=== PATIENT | male | born 1975 | race Caucasian/White ===

== ENCOUNTER 2019-09-19 15:19 | Emergency (ER) | payer BC, SELFPAY ==
[2019-09-19 15:33] VITALS: BP 133/95; PULSE 75; O2SAT 100
[2019-09-19] MEDS ORDERED: Norflex 60 MG/2 ML IM ONE (15:46)
[2019-09-19] MEDS ORDERED: TORAdol 30 mg Injection IM ONE (15:46)
[2019-09-19] MEDS ORDERED: Norflex 60 MG/2 ML ONE (16:24)
[2019-09-19] MEDS ORDERED: TORAdol 30 mg Injection ONE (16:24)
--- NOTE | 2019-09-19 16:37 | ERPHSYRPT ---
- History of Present Illness Time Seen by Provider: 09/19/19 15:31 Source: patient Patient Subjective Stated Complaint: Pt states "I was standing up from my couch and I felt a horrible pain into and accross my lower back." Triage Nursing Assessment: Pt presented alert and oriented X 3, skin pwd. PT ambulates with a slow stiff gait, able to speak in clear full sentences pt in no apparent respiratory distress. Physician History: 44 years old male presented in the ER with chief complaint of sudden onset low back pain when he tried to use stand up from a couch and was kind of locked up because of sharp shooting pain in the low back especially in the left hip area around 11 AM. Since then he has been unable to stand straight up because of excruciating pain. Pain is better with resting. It is kind of radiating from hip to the low mid back. Denies any numbness tingling or weakness of lower extremities or loss of bowel or bladder control. No perineal numbness. Patient reports having similar symptoms many years ago and was having a muscle tear/spasm which improved. Timing/Duration: today, sudden Quality: sharp, stabbing Back Pain Location: paraspinous muscles Back Pain Radiation: buttocks Severity of Pain-Max: severe Severity of Pain-Current: severe Modifying Factors: Improves With: immobilization, movement Associated Symptoms: lower back pain, muscle spasms, No urinary incontinence, No loss of bowel control, No constipation, No problems urinating, No light- headedness, No numbness in legs/feet, No weakness, No sensory/motor loss, No tingling in legs/feet Previous symptoms: same symptoms as today Allergies/Adverse Reactions: codeine Allergy (Intermediate, Verified 09/19/19 15:33) skin crawl, nightmares Hx Tetanus, Diphtheria Vaccination/Date Given: Yes Hx Influenza Vaccination/Date Given: Yes Hx Pneumococcal Vaccination/Date Given: No Immunizations Up to Date: Yes Travel Risk - International Travel Have you traveled outside of the country in past 3 weeks: No Have you or anyone close to you been diagnosed with or: No Do your reside in a community with a known COVID-19 case?: Yes If Yes where:: [email or web address] - Coronavirus Screening Has patient experienced Coronavirus symptoms: No - Review of Systems Constitutional: No Symptoms Eyes: No Symptoms Ears, Nose, & Throat: No Symptoms Respiratory: No Symptoms Cardiac: No Symptoms Abdominal/Gastrointestinal: No Symptoms Musculoskeletal: Back Pain Skin: No Symptoms Neurological: No Symptoms Psychological: No Symptoms Endocrine: No Symptoms Hematologic/Lymphatic: No Symptoms Immunological/Allergic: No Symptoms - Past Medical History Pertinent Past Medical History: No - Past Surgical History Past Surgical History: Yes Other Surgical History: lithotripsy X 2 - Social History Smoking Status: Never smoker Exposure to second hand smoke: Yes Drug Use: none Patient Lives Alone: No - Nursing Vital Signs Nursing Vital Signs: Initial Vital Signs Temperature 98.0 F 09/19/19 15:25 Pulse Rate 75 09/19/19 15:25 Respiratory Rate 18 09/19/19 15:25 Blood Pressure 133/95 09/19/19 15:25 O2 Sat by Pulse Oximetry 100 09/19/19 15:25 Pain Scale Pain Intensity [Lower Back] 8 Pain Intensity 7 - Physical Exam General Appearance: no apparent distress Eye Exam: PERRL/EOMI, eyes nml inspection Ears, Nose, Throat Exam: normal ENT inspection, pharynx normal Neck Exam: normal inspection, non-tender, supple, full range of motion Respiratory Exam: normal breath sounds, lungs clear Cardiovascular Exam: regular rate/rhythm, normal heart sounds Gastrointestinal Exam: soft, No tenderness Back Exam: normal inspection, decreased range of motion, muscle spasm, point tenderness (Left buttock), No CVA tenderness, No vertebral tenderness Extremity Exam: normal inspection, No normal range of motion Neurologic Exam: alert, oriented x 3, cooperative, animal attendant II-XII nml as tested, normal mood/affect, nml cerebellar function Skin Exam: normal color SpO2 Interpretation: normal SpO2: 100 O2 Delivery: Room Air Ordered Tests: Active Orders 24 hr Category Date Time Status HIP UNI (2V) INCL PEL IF DONE Stat Exams 09/19/19 16:16 Taken LUMBAR COMPLETE (MIN 4 VIEWS) Stat Exams 09/19/19 15:46 Taken Medication Summary Discontinued Medications Generic Name Dose Route Start Last Admin Trade Name Freq PRN Reason Stop Dose Admin Ketorolac Tromethamine 60 mg 09/19/19 15:46 09/19/19 16:29 Toradol 30 Mg Injection IM 09/19/19 15:47 60 mg STAT ONE Administration Ketorolac Tromethamine Confirm 09/19/19 16:24 Toradol 30 Mg Injection Administered 09/19/19 16:25 Dose 60 mg .ROUTE .STK-MED ONE Orphenadrine Citrate 60 mg 09/19/19 15:46 09/19/19 16:27 Norflex 60 Mg/2 Ml IM 09/19/19 15:47 60 mg STAT ONE Administration Orphenadrine Citrate Confirm 09/19/19 16:24 Norflex 60 Mg/2 Ml Administered 09/19/19 16:25 Dose 60 mg .ROUTE .STK-MED ONE - Progress Progress: improved, re-examined Progress Note: 09/19/19 16:51 44 years old is evaluated for sudden onset left buttock/low back pain. He has no definite midline tenderness but has tenderness in the left buttock area. I have obtained x-rays of left hip and lumbar spine which are negative for any acute finding that I can appreciate. Official read is pending. He is given Toradol and Norflex, on reevaluation patient pain is almost completely improved and rates 1/10 and is able to ambulate without any assistance. I believe patient has some muscle spasm and I will start him on ibuprofen and Robaxin and recommended outpatient follow-up for reevaluation. At this point patient does not have any cauda equina symptoms and is intact neuro and lower extremities. Discussed signs symptoms of worsening needing return to ER which he seems understanding. Stable for discharge. Counseled pt/family regarding: diagnosis, need for follow-up, rad results - Departure Departure Disposition: Home Clinical Impression: Spasm of muscle of lower back Condition: Stable Critical Care Time: No Referrals: CECILIA GARZA [Primary Care Provider] - Follow Up with PCP/3 days MIKAELA TAYLOR NP [NON-STAFF PHY W/O PRIVILEGES] - Follow Up with PCP/3 days Instructions: Low Back Pain (DC), Sciatica (DC) Additional Instructions: Follow-up with primary care and Ortho clinic for reevaluation. Take pain medication and muscle relaxants as needed. Return to ER for any worsening pain , numbness tingling weakness of lower extremities/loss of bowel or bladder control. Prescriptions: Ibuprofen 600 mg PO Q6HPRN PRN 10 Days #20 tablet PRN Reason: Pain Methocarbamol [Robaxin-750] 750 mg PO TID PRN #30 tablet
--- NOTE | 2019-09-19 19:48 | XRAY ---
Indication: Back pain. No known injury. Comparison: None 5 view lumbar spine demonstrates 5 lumbar vertebral segments in normal alignment with minimal L4-S1 degenerative endplate spurring, minimal disc space narrowing, and mild bilateral degenerative facet hypertrophy. At least 2 right renal and 1 left renal micro-calculi, partially obscured due to diffuse scattered colonic fecal debris. Probable left gluteal calcified injection granuloma. Impression: 1. L4-S1 degenerative changes. 2. Incidental bilateral renal micro-calculi and mild fecal stasis.
--- NOTE | 2019-09-19 19:49 | XRAY ---
Indication: Back and left hip pain. Comparison: None AP pelvis and 2 view left hip demonstrates lower lumbar degenerative changes reported separately and 1.6 cm left gluteal calcified injection granuloma. No other bony, articular, or soft tissue abnormalities.
== END 2019-09-19 17:05 | disposition home or self-care (01) ==
LOC: ED 15:19
DX: M62.830 Muscle spasm of back (principal); M54.5 Low back pain
CPT/HCPCS: 72110; 73502; 96372; 99284; J1885; J2360

== ENCOUNTER 2020-01-10 10:59 | Day surgery (SDC) | payer BC ==
--- NOTE | 2020-01-10 09:19 | HP ---
DATE OF SURGERY: 01/10/2020 HISTORY OF PRESENT ILLNESS: The patient is a 44 year old for the past couple of month's subcutaneous nodules left buttock and posterior thigh area question lipoma or other nodules with increasing symptoms and discomfort desires excision. PAST MEDICAL HISTORY: Denies any chronic illnesses. PAST SURGICAL HISTORY: MEDICATIONS: ALLERGIES: CODEINE. FAMILY HISTORY: Negative in regards to this problem. SOCIAL HISTORY: No smoking or alcohol abuse. REVIEW OF SYSTEMS: Fourteen systems reviewed per admission assessment. No chest pain or palpitations. Other systems negative or noncontributory as above and per preadmission questionnaire. PHYSICAL EXAMINATION: GENERAL: No acute distress. HEENT: Sclerae nonicteric. NECK: No JVD. CHEST: Equal excursion, nonlabored breathing. CVS: Regular rate and rhythm. ABDOMEN: Soft. No peritoneal signs. EXTREMITIES: Left posterior thigh subcutaneous nodule, buttock subcutaneous nodule possible lipoma. No cyanosis. NEURO: Alert, oriented, moving extremities symmetrically. No gross motor deficits noted. PSYCH: Appropriate mood and affect. IMPRESSION: Enlarging painful subcutaneous nodules or lipoma left buttock and left posterior thigh. I feel the patient will benefit from excisional biopsy. Risks and benefits explained in detail including but not limited to bleeding or infection, risk of dehiscence possibly requiring packing, risk of hematoma or seroma formation, general risk of aches and pains, possibility he could get other nodules or lipomas adjacent to or elsewhere on his body. General risk of anesthesia, deep venous thrombosis, pulmonary embolism, pneumonia but not limited to, will proceed with excisional biopsy of left buttock and left posterior thigh subcutaneous nodules or lipoma as an outpatient.
[~2020-01-10 10:59] MED LIST: Lactated Ringers 1,000 ML IV ONE; Sensorcaine 0.25% 10 ML ONE
[2020-01-10] MEDS ORDERED: Lactated Ringers 1,000 ML IV SCH (12:00)
[2020-01-10] MEDS ORDERED: Quelicin Fliptop 200 MG/10 ML ONE (12:49)
[2020-01-10] MEDS ORDERED: Xylocaine-Mpf 2% 5 Ml Vial ONE (12:49)
[2020-01-10] MEDS ORDERED: Versed 2 MG/2 ML Injection ONE (12:49)
[2020-01-10] MEDS ORDERED: DIPRIVAN 200 MG/20 ML IV ONE (12:49)
[2020-01-10] MEDS ORDERED: SUBLIMAZE 100 MCG/2 ML ONE ×2 (12:49→13:58)
[2020-01-10] MEDS ORDERED: KEFZOL 1 GM ONE (12:58)
[2020-01-10] MEDS ORDERED: TRANDATE 100 MG/20 ML MDV FOR DRIP IV ONE (13:54)
[2020-01-10] MEDS ORDERED: BACIGUENT 30 GM ONE (14:27)
[2020-01-10 16:21] VITALS: O2SAT 99
[2020-01-10 16:33] VITALS: BP 138/68; PULSE 72
--- NOTE | 2020-01-11 11:56 | OP ---
SURGERY DATE/TIME: 01/10/2020 1247 PREOPERATIVE DIAGNOSIS: Enlarging symptomatic subcutaneous nodule or lipomatous densities left buttock and left thigh. POSTOPERATIVE DIAGNOSIS: Enlarging symptomatic subcutaneous nodule or lipomatous densities left buttock and left thigh, final path pending. PROCEDURES: 1) Excisional biopsy of approximately 5 cm lipomatous density left buttock with intermediate closure. 2) Excisional biopsy of lipomatous density left thigh approximately 3.5 cm with intermediate closure. SURGEON: Dr. Maik Perez. ORE TRIMMER: Raymundo Majano, Medical Student III. ANESTHESIA: General. ESTIMATED BLOOD LOSS: Minimal. INDICATIONS: As noted above. Risks and benefits explained in detail and not limited to and consent obtained. DESCRIPTION OF PROCEDURE AND FINDINGS: The patient is taken to the operating room. General anesthesia introduced. After official time out and no disagreement with planned procedure, in lateral position. He was prepped and draped in usual sterile fashion. A transverse incision made overlying the buttock area. Dissection carried down circumferentially around the dense lipomatous density dissecting down off midline fascia and passed off. It measured about 5 cm in size. It had a deep firm area and a little bit softer outer area. Passed off for pathology. The deep space closed with interrupted 3-0 Vicryl. Superficial subcu closed with 3-0 Vicryl. Skin closed with 4-0 Vicryl, interrupted 3-0 Prolene used to reinforce the area given location and the frequent motion there. Sterile dressing applied. Attention then turned to the posterior left thigh area. It had been marked in the preoperative holding area. Incision made overlying the top of this and dissection carried down circumferentially around this denser lipomatous density dissecting down to more normal appearing deeper subcu beneath and passed off. It measured about 3.5 cm in size. Good hemostasis noted. The wound is irrigated out. Deep superficial subcu closed with 3-0 Vicryl. Skin closed with 4-0 Vicryl. Interrupted 2-0 Prolene used to reinforce the area given the location as it is a high motion location. Sterile dressing applied. 0.25% Marcaine local injected along the wound. The patient tolerated the procedure well. There were no immediate complications. Findings discussed with the family in the waiting area.
== END 2020-01-10 15:40 | disposition home or self-care (01) ==
LOC: SDC 10:59
PROVIDERS: ATTEND Surgery
DX: D17.1 Benign lipomatous neoplasm of skin and subcutaneous tissue of trunk (principal); D17.24 Benign lipomatous neoplasm of skin and subcutaneous tissue of left leg
CPT/HCPCS: 88304; J0330; J0690; J2250; J2704; J3010; A9270-GY

== ENCOUNTER 2020-10-14 07:21 | Emergency (ER) | payer BC, SELFPAY ==
[2020-10-14 07:36] VITALS: O2SAT 99
--- NOTE | 2020-10-14 07:40 | ERPHSYRPT ---
- History of Present Illness Time Seen by Provider: 10/14/20 07:37 Source: patient Exam Limitations: no limitations Patient Subjective Stated Complaint: Headache Triage Nursing Assessment: Patient ambulated back to ED and transferred self to bed. Delfino A+O X3. Patient's skin pink, warm and dry. Patient complains of headache since of constant pressure 4/10. Patient was seen in [facility] on and prescribed steroids. Patient denies fever, cough or SOB. Physician History: Patient is a 45-year-old white male who presents with a complaint of bilateral frontal and temporal headaches for several days. He has had congestion and pressure especially in the facial area he went to the [facility] and was given steroids but no imaging. He has had minimal discharge no bloody discharge and no cough. He also denies any fever chills but did get into a sauna type thing to "sweat it out" Timing/Duration: gradual onset Severity: moderate ENT Location: nose, facial Prearrival Treatment: prescription meds (Using saline washes and steroids.) Modifying Factors: Worsens With: coughing Associated Symptoms: facial pain/swelling, headache, sinus infection Allergies/Adverse Reactions: codeine Allergy (Intermediate, Verified 10/14/20 07:28) skin crawl, nightmares Home Medications: Acetaminophen [Tylenol] 650 mg PO Q4H PRN PRN 11/24/19 [History] Hx Tetanus, Diphtheria Vaccination/Date Given: Yes Hx Influenza Vaccination/Date Given: Yes Hx Pneumococcal Vaccination/Date Given: No Immunizations Up to Date: Yes Travel Risk - International Travel Have you traveled outside of the country in past 3 weeks: No - Coronavirus Screening Are you exhibiting any of the following symptoms?: No Close contact with a COVID-19 positive Pt in past 14-21 Days: No - Vaccine Status Have you recieved a Covid-19 vaccination: No - Review of Systems Constitutional: No Fever, No Chills Eyes: No Symptoms Ears, Nose, & Throat: Nose Pain, Nose Congestion, Other (Show pain to palpation over the maxillary and frontal sinuses) Respiratory: No Cough, No Dyspnea Cardiac: No Chest Pain, No Edema, No Syncope Abdominal/Gastrointestinal: No Abdominal Pain, No Nausea, No Vomiting, No Diarrhea Genitourinary Symptoms: No Dysuria Musculoskeletal: No Back Pain, No Neck Pain Skin: No Rash Neurological: No Dizziness, No Focal Weakness, No Sensory Changes Psychological: No Symptoms Endocrine: No Symptoms All Other Systems: Reviewed and Negative - Past Medical History Pertinent Past Medical History: No Neurological History: No Pertinent History ENT History: No Pertinent History Cardiac History: No Pertinent History Respiratory History: No Pertinent History Endocrine Medical History: No Pertinent History Musculoskeletal History: No Pertinent History GI Medical History: No Pertinent History History: No Pertinent History Psycho-Social History: No Pertinent History Male Reproductive Disorders: No Pertinent History Other Medical History: seasonal allergies - Past Surgical History Past Surgical History: Yes Neuro Surgical History: No Pertinent History Cardiac: No Pertinent History Respiratory: No Pertinent History Gastrointestinal: No Pertinent History Genitourinary: No Pertinent History Musculoskeletal: No Pertinent History Male Surgical History: No Pertinent History Other Surgical History: lithotripsy X 2 - Social History Smoking Status: Never smoker Exposure to second hand smoke: No Drug Use: none Patient Lives Alone: No - Nursing Vital Signs Nursing Vital Signs: Initial Vital Signs Temperature 97.0 F 10/14/20 07:29 Pulse Rate 93 H 10/14/20 07:29 Respiratory Rate 18 10/14/20 07:29 Blood Pressure 162/104 10/14/20 07:29 O2 Sat by Pulse Oximetry 99 10/14/20 07:29 Pain Scale Pain Intensity 4 - Physical Exam General Appearance: moderate distress, alert Eye Exam: bilateral eye: PERRL, EOMI Ear Exam: bilateral ear: auricle normal, canal normal, TM normal Nasal Exam: sinus tenderness, No active bleeding, No foreign body Throat Exam: pharynx normal, moist mucus membranes, No tonsillar exudate Neck Exam: supple Cardiovascular/Respiratory Exam: normal breath sounds, regular rate/rhythm Abdominal Exam: non-tender, soft Neurologic Exam: alert, oriented x 3, sensation nml, No motor deficits Skin Exam: normal color, warm, dry SpO2: 99 - Course Nursing assessment & vital signs reviewed: Yes - CT Exams Maxillofacial Bones CT Interpretation: Other (Physician interpretation of the sinus film shows a polyp in the right maxillary sinus and some ethmoid sinusitis.) Ordered Tests: Active Orders 24 hr Category Date Time Status SINUSES WITHOUT CONTRAST [CT] Stat Exams 10/14/20 07:57 Taken - Progress Progress: unchanged - Departure Departure Disposition: Home Clinical Impression: Sinusitis Condition: Stable Critical Care Time: No Referrals: MELISSA HERNANDEZ [Primary Care Provider] - Instructions: Sinusitis, Adult (DC) Prescriptions: Diclofenac Sodium 50 mg PO TID 7 Days #21 tablet. Cephalexin Mh 500 mg [Keflex 500 mg] 500 mg PO TID #21 capsule
[2020-10-14 09:13] VITALS: BP 156/97; PULSE 85
--- NOTE | 2020-10-14 21:32 | XRAY ---
Indication: Bilateral sinus pain. Multiple contiguous axial images obtained through the paranasal sinuses. Sagittal and coronal reformatted images obtained. Comparison: None Minimal mucosal thickening floor left maxillary sinus. Remaining paranasal sinuses, ostiomeatal units, and nasal passages are clear. Minimal nasal septal deviation to the left. No acute fracture, suspicious bony lesions, or radiopaque foreign body. Visualized noncontrast soft tissues including orbits and base of the brain are unremarkable. Impression: Minimal left maxillary sinus disease and minimal nasal septal deviation. Comment: Preliminary interpretation was made by [facility]. No critical discrepancy.
== END 2020-10-14 09:36 | disposition home or self-care (01) ==
LOC: ED 07:21
DX: J32.9 Chronic sinusitis, unspecified (principal)
CPT/HCPCS: 70486; 99283